=== PATIENT | male | born 1975 | race Two or more races ===

== ENCOUNTER 2016-08-22 18:43 | Emergency (ER) | payer MEDICAID ==
[~2016-08-22] VITALS: Ht 175.3 cm; Wt 99.8 kg
[~2016-08-22 18:43] MED LIST: APIX5TAB OR; METO25TA5 PO; OLME40TA27 PO
[2016-08-22 20:49] LABS: Basophils # (auto) 0 uL; Basophils % (auto) 0.4 % (0.0-2.0); DEFINITIVE VIEW TRANSMISSION; Eosinophils # (auto) 0.3 uL; Eosinophils % (auto) 3.5 % (0.0-7.0); Hematocrit 40.9 % (41.0-53.0); Hemoglobin 12.9 g/dL (13.5-17.5); Lymphocytes # (auto) 1.3 uL; Lymphocytes % (auto) 15.8 % (10.0-50.0); Mean Corpuscular Hemoglobin 23.6 pg (28.0-32.0); Mean Corpuscular Hgb Conc. 31.6 g/dL (32.0-36.0); Mean Corpuscular Volume 74.8 fL (80.0-100.0); Mean Platelet Volume 8.2 fL (7.4-10.4); Monocytes # (auto) 0.7 uL; Monocytes % (auto) 8.5 % (0.0-12.0); Neutrophils # (auto) 6.1 uL; Neutrophils % (auto) 71.8 % (37.0-80.0); Platelet Count (auto) 306 10^3/uL (140-450); Red Cell Distribution Width 19.8 % (11.6-16.0); White Blood Cell 8.5 10^3/uL (4.4-10.8)
[2016-08-22 21:06] LABS: Urine Bilirubin Negative (Negative); Urine Glucose Normal (Normal); Urine Ketone Negative (Negative); Urine Nitrite Negative (Negative); Urine RBC 2052 /hpf (0 - 3); Urine Squamous Epithelial Cell FEW /hpf (<5); Urine Urobilinogen Normal (Negative); Urine pH 5.5 (5.0-8.0)
[2016-08-22 21:13] LABS: Urine Blood 3+ /uL (Negative); Urine Color Orange (Yellow)
[2016-08-22 21:23] LABS: Albumin 3.7 g/dL (3.4-5.0); BUN/Creatinine Ratio 15.5; Potassium 3.7 mmol/L (3.5-5.1)
[2016-08-22 21:25] LABS: Bilirubin, Total 0.3 mg/dL (0.2-1.0); Total Protein 7.9 g/dL (6.4-8.2)
[2016-08-22 22:13] LABS: Anisocytosis Slight; Giant Platelets Few; Platelet Estimate Adequate
[2016-08-22 22:14] LABS: Hypochromia Moderate
[2016-08-22 22:15] LABS: Ovalocytes FEW; Tear Drop Cells FEW
[2016-08-23] MEDS ORDERED: HYDROcodone-ACET 10/325MG TAB PO ONE (06:15)
[2016-08-23] MEDS ORDERED: LEVOFLOXACIN 500 MG TAB PO ONE (06:15)
[2016-08-23 06:20] VITALS: BP 134/84
== END 2016-08-23 06:42 | disposition home or self-care (01) ==
LOC: ER 18:48
DX: N39.0 Urinary tract infection, site not specified (principal); N40.0 Benign prostatic hyperplasia without lower urinary tract symptoms; E11.9 Type 2 diabetes mellitus without complications; I10 Essential (primary) hypertension; F17.210 Nicotine dependence, cigarettes, uncomplicated; Z79.01 Long term (current) use of anticoagulants; Z88.5 Allergy status to narcotic agent; Z88.6 Allergy status to analgesic agent; Z88.1 Allergy status to other antibiotic agents
CPT/HCPCS: 36415; 80053; 81001; 85025

== ENCOUNTER 2016-08-26 12:54 | Emergency (ER) | payer MEDICAID ==
[~2016-08-26] VITALS: Ht 172.7 cm; Wt 99.8 kg
[2016-08-26 14:26] LABS: Urine Bilirubin Negative (Negative); Urine Color Orange (Yellow); Urine Glucose Normal (Normal); Urine Ketone Negative (Negative); Urine Nitrite Negative (Negative); Urine RBC 1223 /hpf (0 - 3); Urine Squamous Epithelial Cell FEW /hpf (<5); Urine Urobilinogen Normal (Negative)
[2016-08-26 14:29] LABS: BUN/Creatinine Ratio 11.6; Calcium 8.7 mg/dL (8.5-10.1); Potassium 4.2 mmol/L (3.5-5.1)
[2016-08-26 14:36] LABS: Urine Blood 3+ /uL (Negative)
[2016-08-26 14:38] LABS: Bilirubin, Total 0.3 mg/dL (0.2-1.0); Magnesium 2.3 mg/dL (1.6-2.6); Total Protein 7.8 g/dL (6.4-8.2)
[2016-08-27] MEDS ORDERED: HYDROmorphone HCL 2 MG/ML VL IV ONE ×3 (04:00→06:45)
[2016-08-27] MEDS ORDERED: ONDANSETRON HCL 4 MG/2 ML VIAL IV ONE ×3 (04:00→06:45)
[2016-08-27] MEDS ORDERED: SODIUM CHLORIDE 0.9% 1,000 ML IV ONE (05:45)
[2016-08-27 07:20] VITALS: BP 135/73
[2016-08-27 07:44] LABS: DEFINITIVE VIEW TRANSMISSION; Hematocrit 40.3 % (41.0-53.0); Hemoglobin 12.6 g/dL (13.5-17.5); Mean Corpuscular Hemoglobin 23.4 pg (28.0-32.0); Mean Corpuscular Hgb Conc. 31.2 g/dL (32.0-36.0); Mean Platelet Volume 8.6 fL (7.4-10.4); Platelet Count (auto) 257 10^3/uL (140-450); Red Cell Distribution Width 19.1 % (11.6-16.0); White Blood Cell 4.5 10^3/uL (4.4-10.8)
[2016-08-27 07:52] LABS: Metamyelocytes % 0; Myelocytes % 0; Promyelocytes % 0; Reactive Lymphocytes 0
[2016-08-27 09:29] LABS: Anisocytosis Slight; Hypochromia Moderate; Microcytosis Moderate; Platelet Estimate Adequate
[2016-08-27 09:30] LABS: Ovalocytes FEW
== END 2016-08-27 07:53 | disposition home or self-care (01) ==
LOC: ER 13:03
DX: R10.9 Unspecified abdominal pain (principal); N41.1 Chronic prostatitis; E11.9 Type 2 diabetes mellitus without complications; I10 Essential (primary) hypertension; F17.210 Nicotine dependence, cigarettes, uncomplicated; M54.5 Low back pain; N40.0 Benign prostatic hyperplasia without lower urinary tract symptoms; N50.89 Other specified disorders of the male genital organs; R30.0 Dysuria; R31.9 Hematuria, unspecified; Z79.01 Long term (current) use of anticoagulants; Z88.1 Allergy status to other antibiotic agents; Z87.440 Personal history of urinary (tract) infections
CPT/HCPCS: 36415; 80053; 81001; 82962; 83735; 85007; 85027; 96361; 96374; 96375; 96376; 99285; J1170; J2405; J7030

== ENCOUNTER 2016-09-05 15:04 | Emergency (ER) | payer MEDICAID ==
[~2016-09-05] VITALS: Ht 172.7 cm; Wt 99.8 kg
[2016-09-05 18:47] LABS: Urine Bilirubin Negative (Negative); Urine Color Brown (Yellow); Urine Glucose Normal (Normal); Urine Ketone Negative (Negative); Urine Mucus FEW (None Seen); Urine Nitrite Negative (Negative); Urine RBC 1783 /hpf (0 - 3); Urine Urobilinogen Normal (Negative); Urine pH 7.5 (5.0-8.0)
[2016-09-05 18:48] LABS: Urine Blood 3+ /uL (Negative)
[2016-09-06] MEDS ORDERED: NALBUPHINE HCL 10 MG/1ml INJECTION IV ONE
[2016-09-06] MEDS ORDERED: SODIUM CHLORIDE 0.9% 1,000 ML IV ONE
[2016-09-06 01:10] LABS: Basophils # (auto) 0.1 uL; Basophils % (auto) 0.7 % (0.0-2.0); DEFINITIVE VIEW TRANSMISSION; Eosinophils # (auto) 0.1 uL; Eosinophils % (auto) 0.6 % (0.0-7.0); Hematocrit 42.4 % (41.0-53.0); Hemoglobin 13.1 g/dL (13.5-17.5); Lymphocytes # (auto) 1.9 uL; Lymphocytes % (auto) 18.2 % (10.0-50.0); Mean Corpuscular Hemoglobin 22.9 pg (28.0-32.0); Mean Corpuscular Hgb Conc. 30.8 g/dL (32.0-36.0); Mean Corpuscular Volume 74.4 fL (80.0-100.0); Mean Platelet Volume 8.4 fL (7.4-10.4); Monocytes # (auto) 0.6 uL; Monocytes % (auto) 5.4 % (0.0-12.0); Neutrophils # (auto) 7.7 uL; Neutrophils % (auto) 75.1 % (37.0-80.0); Platelet Count (auto) 347 10^3/uL (140-450); Red Cell Distribution Width 17.6 % (11.6-16.0); White Blood Cell 10.4 10^3/uL (4.4-10.8)
[2016-09-06 01:24] LABS: Albumin 3.5 g/dL (3.4-5.0); BUN/Creatinine Ratio 9.8; Calcium 8.5 mg/dL (8.5-10.1); Potassium 3.3 mmol/L (3.5-5.1)
[2016-09-06 01:26] LABS: Bilirubin, Total 0.5 mg/dL (0.2-1.0); Total Protein 7.4 g/dL (6.4-8.2)
[2016-09-06] MEDS ORDERED: HYDROmorphone HCL 2 MG/ML VL IV ONE (01:30)
[2016-09-06 02:30] VITALS: BP 156/70
[2016-09-06 02:50] LABS: Urine Bilirubin Negative (Negative); Urine Blood Negative /uL (Negative); Urine Color Yellow (Yellow); Urine Glucose Normal (Normal); Urine Ketone Negative (Negative); Urine Mucus FEW (None Seen); Urine Nitrite Negative (Negative); Urine RBC 1 /hpf (0 - 3); Urine Squamous Epithelial Cell FEW /hpf (<5); Urine Urobilinogen Normal (Negative)
== END 2016-09-06 02:08 | disposition home or self-care (01) ==
LOC: EDUNIT# 15:04 → ER 15:14
DX: K42.9 Umbilical hernia without obstruction or gangrene (principal); K59.01 Slow transit constipation; E11.9 Type 2 diabetes mellitus without complications; I10 Essential (primary) hypertension; F17.210 Nicotine dependence, cigarettes, uncomplicated; Z89.512 Acquired absence of left leg below knee; Z87.440 Personal history of urinary (tract) infections; Z88.6 Allergy status to analgesic agent; Z88.1 Allergy status to other antibiotic agents; Z76.0 Encounter for issue of repeat prescription
CPT/HCPCS: 36415; 74176; 80053; 81001; 85025; 85049; 93005; 96361; 96374; 96375; 99285; G0434; J1170; J2300

== ENCOUNTER 2016-09-15 18:36 | Emergency (ER) | payer MEDICAID ==
[~2016-09-15] VITALS: Ht 172.7 cm; Wt 99.8 kg
[2016-09-15] MEDS ORDERED: cloNIDine HCL 0.1 MG TAB PO ONE (19:30)
[2016-09-15 20:05] LABS: Basophils # (auto) 0 uL; Basophils % (auto) 0.1 % (0.0-2.0); DEFINITIVE VIEW TRANSMISSION; Eosinophils # (auto) 0.1 uL; Eosinophils % (auto) 1.1 % (0.0-7.0); Hematocrit 45.5 % (41.0-53.0); Hemoglobin 14.2 g/dL (13.5-17.5); Lymphocytes # (auto) 1.7 uL; Lymphocytes % (auto) 17.2 % (10.0-50.0); Mean Corpuscular Hemoglobin 23.5 pg (28.0-32.0); Mean Corpuscular Hgb Conc. 31.2 g/dL (32.0-36.0); Mean Corpuscular Volume 75.3 fL (80.0-100.0); Mean Platelet Volume 8.5 fL (7.4-10.4); Monocytes # (auto) 0.5 uL; Monocytes % (auto) 5.5 % (0.0-12.0); Neutrophils # (auto) 7.3 uL; Neutrophils % (auto) 76.1 % (37.0-80.0); Platelet Count (auto) 331 10^3/uL (140-450); Red Cell Distribution Width 18.9 % (11.6-16.0); White Blood Cell 9.6 10^3/uL (4.4-10.8)
[2016-09-15 20:22] LABS: INR 1.02 (0.9-1.15); Partial Thromboplastin Time 27.3 sec (22.64-33.71); Prothrombin Time 10.5 sec (9.37-12.3)
[2016-09-15 20:24] LABS: Urine Bilirubin Negative (Negative); Urine Color Red (Yellow); Urine Glucose Normal (Normal); Urine Ketone TRACE (Negative); Urine Nitrite Negative (Negative); Urine RBC 5667 /hpf (0 - 3); Urine Urobilinogen Normal (Negative)
[2016-09-15 20:27] LABS: Urine Blood 3+ /uL (Negative)
[2016-09-15 20:36] LABS: Albumin 3.7 g/dL (3.4-5.0); BUN/Creatinine Ratio 7.7; Calcium 8.3 mg/dL (8.5-10.1); Potassium 3.3 mmol/L (3.5-5.1)
[2016-09-15 20:39] LABS: Bilirubin, Total 0.4 mg/dL (0.2-1.0)
[2016-09-16 01:38] VITALS: BP 144/96
== END 2016-09-16 02:05 | disposition home or self-care (01) ==
LOC: ER 18:43
DX: N13.30 Unspecified hydronephrosis (principal); R10.9 Unspecified abdominal pain; I10 Essential (primary) hypertension; F17.210 Nicotine dependence, cigarettes, uncomplicated; E11.9 Type 2 diabetes mellitus without complications; K86.1 Other chronic pancreatitis; Z88.6 Allergy status to analgesic agent; Z88.8 Allergy status to other drugs, medicaments and biological substances; Z88.2 Allergy status to sulfonamides; Z87.440 Personal history of urinary (tract) infections; Z90.89 Acquired absence of other organs; Z89.519 Acquired absence of unspecified leg below knee
CPT/HCPCS: 36415; 70450; 74176; 80053; 81001; 82962; 83690; 85025; 85049; 85610; 85730

== ENCOUNTER 2016-09-21 11:03 | Inpatient (IN) | payer MEDICAID ==
[~2016-09-21] VITALS: Ht 172.7 cm; Wt 109.0 kg
[2016-09-21 08:00] VITALS: BP 114/97
[2016-09-21 13:24] LABS: Basophils # (auto) 0 uL; Basophils % (auto) 0.2 % (0.0-2.0); DEFINITIVE VIEW TRANSMISSION; Eosinophils # (auto) 0.1 uL; Eosinophils % (auto) 1.1 % (0.0-7.0); Hematocrit 47.8 % (41.0-53.0); Hemoglobin 14.7 g/dL (13.5-17.5); Lymphocytes % (auto) 18.5 % (10.0-50.0); Mean Corpuscular Hemoglobin 23.5 pg (28.0-32.0); Mean Corpuscular Hgb Conc. 30.8 g/dL (32.0-36.0); Mean Corpuscular Volume 76.4 fL (80.0-100.0); Mean Platelet Volume 8.8 fL (7.4-10.4); Monocytes # (auto) 0.4 uL; Monocytes % (auto) 7.6 % (0.0-12.0); Neutrophils % (auto) 72.6 % (37.0-80.0); Platelet Count (auto) 303 10^3/uL (140-450); Red Cell Distribution Width 19.3 % (11.6-16.0); SUSPECT VIEW TRANSMISSION; White Blood Cell 5.5 10^3/uL (4.4-10.8)
[2016-09-21 13:50] LABS: Albumin 3.9 g/dL (3.4-5.0); BUN/Creatinine Ratio 17.9; Bilirubin, Total 0.5 mg/dL (0.2-1.0); Calcium 8.7 mg/dL (8.5-10.1); Potassium 3.6 mmol/L (3.5-5.1); Total Protein 8.1 g/dL (6.4-8.2)
[2016-09-21 14:52] LABS: Anisocytosis Slight; Hypochromia Moderate; Platelet Clumps FEW; Platelet Estimate Adequate
[2016-09-21] MEDS ORDERED: HYDROmorphone HCL 2 MG/ML VL IV ONE (17:00)
[2016-09-21] MEDS ORDERED: ONDANSETRON HCL 4 MG/2 ML VIAL IV ONE (17:00)
[2016-09-21] MEDS ORDERED: CLINDAMYCIN 600MG IV 50 ML IV ONE (17:00)
[2016-09-21] MEDS ORDERED: cefTRIAXone 1GM/50ML D5W 50 ML IV ONE (18:00)
[2016-09-21] MEDS ORDERED: DEXTROSE (50%) 50ML SYRG IV PRN (18:00)
[2016-09-21] MEDS ORDERED: DOCUSATE SOD 100 MG CAP PO PRN (18:15)
[2016-09-21] MEDS ORDERED: MORPHINE SULF INJ 2 MG/ML SYRINGE 1ML IV PRN (18:15)
[2016-09-21] MEDS ORDERED: TEMAZEPAM 15 MG CAP PO PRN (18:15)
[2016-09-21] MEDS ORDERED: NITROGLYCERIN 0.4 MG SL TAB SL PRN (18:15)
[2016-09-21] MEDS ORDERED: ONDANSETRON HCL 4 MG/2 ML VIAL IV PRN (18:15)
[2016-09-21 19:37] LABS: INR 1.08 (0.9-1.15); Prothrombin Time 11.1 sec (9.37-12.3)
[2016-09-21 19:53] VITALS: BP 114/97
[2016-09-21 20:00] VITALS: BP 114/97
[2016-09-21] MEDS: HYDROmorphone HCL 2 MG/ML VL IV PRN (21:39)
[2016-09-21] MEDS: ASCORBIC ACID 500 MG TAB PO SCH (21:40)
[2016-09-21] MEDS: CLINDAMYCIN 300MG IV 50 ML IV SCH (21:41)
[2016-09-21] MEDS: FAMOTIDINE 20 MG TAB PO SCH (21:41)
[2016-09-21] MEDS: SODIUM CHLOR 0.9% PF (SALINE LOCK) 10ML VIAL IV SCH (21:41)
[2016-09-21] MEDS: METOPROLOL TARTRATE 25 MG TAB PO SCH (21:42)
[2016-09-21] MEDS: InsuLIN REG 1unit/0.01ml Soln (100units/ml) SC SCH (22:00)
[2016-09-21] MEDS: ACCU-CHEK COMFORT CURVE STRIP VI SCH (22:14)
[2016-09-22] MEDS: HYDROmorphone HCL 2 MG/ML VL IV PRN ×5 (04:14→22:40)
[2016-09-22] MEDS: SODIUM CHLOR 0.9% PF (SALINE LOCK) 10ML VIAL IV SCH ×3 (06:00→22:40)
[2016-09-22] MEDS: CLINDAMYCIN 300MG IV 50 ML IV SCH ×3 (06:50→22:40)
[2016-09-22] MEDS: ACCU-CHEK COMFORT CURVE STRIP VI SCH ×4 (06:52→22:00)
[2016-09-22] MEDS: InsuLIN REG 1unit/0.01ml Soln (100units/ml) SC SCH ×4 (06:52→22:00)
[2016-09-22 08:00] VITALS: BP 128/83
[2016-09-22] MEDS: BENICAR 40MG PO SCH (10:00)
[2016-09-22 12:47] VITALS: BP 128/83
[2016-09-22] MEDS: ASCORBIC ACID 500 MG TAB PO SCH ×2 (12:56→22:41)
[2016-09-22] MEDS: FAMOTIDINE 20 MG TAB PO SCH ×2 (12:57→22:41)
[2016-09-22] MEDS: MULTIPLE VITAMIN TAB PO SCH (12:57)
[2016-09-22] MEDS: METOPROLOL TARTRATE 25 MG TAB PO SCH ×2 (13:08→22:41)
[2016-09-22] MEDS: cefTRIAXone 1GM/50ML D5W 50 ML IV SCH (13:09)
[2016-09-22] MEDS: ZINC SULFATE 220 MG CAP PO SCH (13:20)
[2016-09-22 17:22] VITALS: BP 118/90
[2016-09-22 20:00] VITALS: BP 140/92
[2016-09-22 22:58] VITALS: BP 140/92
[2016-09-23] MEDS: HYDROmorphone HCL 2 MG/ML VL IV PRN ×3 (03:08→11:17)
[2016-09-23 05:42] VITALS: BP 116/72
[2016-09-23] MEDS: CLINDAMYCIN 300MG IV 50 ML IV SCH (06:02)
[2016-09-23] MEDS: SODIUM CHLOR 0.9% PF (SALINE LOCK) 10ML VIAL IV SCH (06:02)
[2016-09-23] MEDS: InsuLIN REG 1unit/0.01ml Soln (100units/ml) SC SCH (07:00)
[2016-09-23] MEDS: ACCU-CHEK COMFORT CURVE STRIP VI SCH (07:03)
[2016-09-23 09:00] VITALS: BP 132/78
[2016-09-23] MEDS: cefTRIAXone 1GM/50ML D5W 50 ML IV SCH (09:04)
[2016-09-23] MEDS: METOPROLOL TARTRATE 25 MG TAB PO SCH (09:05)
[2016-09-23] MEDS: ASCORBIC ACID 500 MG TAB PO SCH (09:05)
[2016-09-23] MEDS: MULTIPLE VITAMIN TAB PO SCH (09:05)
[2016-09-23] MEDS: FAMOTIDINE 20 MG TAB PO SCH (09:05)
[2016-09-23] MEDS: ZINC SULFATE 220 MG CAP PO SCH (09:05)
[2016-09-23] MEDS: BENICAR 40MG PO SCH (09:06)
== END 2016-09-23 14:00 | disposition home or self-care (01) | DRG 349 ==
LOC: ER 11:05 → OVERFLOW 11:06 → WEST WING 18:14
PROVIDERS: ADMIT Internal Medicine; ATTEND Hospitalist
DX: T87.43 Infection of amputation stump, right lower extremity (principal); E11.69 Type 2 diabetes mellitus with other specified complication; L03.115 Cellulitis of right lower limb; E87.1 Hypo-osmolality and hyponatremia; M86.8X6 Other osteomyelitis, lower leg; E61.1 Iron deficiency; Z89.511 Acquired absence of right leg below knee; F17.210 Nicotine dependence, cigarettes, uncomplicated; I10 Essential (primary) hypertension; N40.0 Benign prostatic hyperplasia without lower urinary tract symptoms; Y83.5 Amputation of limb(s) as the cause of abnormal reaction of the patient, or of later complication, without mention of misadventure at the time of the procedure; Z83.3 Family history of diabetes mellitus; Z86.73 Personal history of transient ischemic attack (TIA), and cerebral infarction without residual deficits; Z87.440 Personal history of urinary (tract) infections; Z88.5 Allergy status to narcotic agent; Z88.2 Allergy status to sulfonamides; Z88.8 Allergy status to other drugs, medicaments and biological substances; Z90.89 Acquired absence of other organs
CPT/HCPCS: 36415; 73700; 78315; 80053; 82962; 83036; 83540; 85025; 85610; 85652; 86141; 87040; 87081; 96365; 96375; J0696; J2405; J3490